=== PATIENT | female | born 1980 | race African-American/Black ===

== ENCOUNTER 2016-09-06 14:34 | Emergency (ER) | payer MEDICAID, SELFPAY ==
[~2016-09-06] VITALS: Ht 157.5 cm; Wt 81.6 kg
[~2016-09-06 14:34] MED LIST: NKM; PERCOCET 5-3251 EACH ORAL
[2016-09-06 15:23] LABS: APPEARANCE,URINE CLEAR; KETONES,URINE 1+ (NEGATIVE); LEUKOCYTE ESTERASE ,URINE 2+ (NEGATIVE); NITRITE,URINE POSITIVE (NEGATIVE); PH,URINE 6.5 (4.5-8.0); PROTEIN,URINE NEGATIVE (NEGATIVE); UROBILINOGEN,URINE NORMAL MG/DL (0.0-1.0)
[2016-09-06 15:24] VITALS: BP 154/87
[2016-09-06 15:26] VITALS: BP 154/87
--- NOTE | 2016-09-06 15:37 | Emergency Room Report ---
History of Present Illness General Chief Complaint: Vaginal Source: Patient Present Illness HPI 36 YO Female presents to the ED c/o having a positive chlamydia test with dysuria x 1 week. pt. states she is unable to make appt. with the clinic until next week. denies fevers, chills, n/V or joint pains. pt. reports period is also late x 1 week. She denies abdominal pain, vaginal discharge, swollen tender lymph nodes. She denies hematuria. She reports frequency. Denies CP, Palpitations, LOC, AMS, dizziness, Changes in Vision, Sensation, paresthesias, or a sudden severe headache. Allergies: Coded Allergies: No Known Allergies (Unverified , 02/07/13) Patient History Past Medical History: see triage record Past Surgical History: none Pertinent Family History: none Last Menstrual Period: last month Now: No Reviewed Nursing Documentation: PMH: Agreed, PSxH: Agreed Nursing Documentation-PMH Past Medical History: No Stated History Review of Systems All Other Systems: negative except mentioned in HPI Physical Exam Vital Signs Date Time Temp Pulse Resp B/P Pulse Ox O2 Delivery O2 Flow Rate FiO2 09/06/16 14:40 98.4 77 18 173/97 100 Room Air Sp02 EP Interpretation: reviewed, normal General Appearance: no apparent distress, alert, GCS 15, non-toxic Head: normocephalic, atraumatic Eyes: bilateral eye PERRL, bilateral eye normal inspection ENT: hearing grossly normal, normal pharynx, no angioedema, normal voice Neck: full range of motion, supple/symm/no masses Respiratory: lungs clear, normal breath sounds, speaking full sentences Cardiovascular #1: regular rate, rhythm, no edema Gastrointestinal: normal bowel sounds, non tender, soft, no guarding, no rebound Rectal: deferred Genitourinary: normal inspection, no CVA tenderness Musculoskeletal: back normal, gait/station normal, normal range of motion, non- tender Neurologic: alert, oriented x3, responsive, motor strength/tone normal, sensory intact, speech normal Psychiatric: judgement/insight normal, memory normal, mood/affect normal Skin: normal color, no rash, warm/dry, well hydrated Lymphatic: no adenopathy Medical Decision Making PA Attestation Dr. cruz is my supervising Physician whom patient management has been discussed with. Diagnostic Impression: Primary Impression: Urinary tract infection Qualified Codes: N30.00 - Acute cystitis without hematuria Additional Impression: Positive Chlamyida test ER Course Pt. presents to the ED c/o having a positive chlamydia test with dysuria x 1 week. pt. states she is unable to make appt. with the clinic until next week. denies fevers, chills, n/V or joint pains. pt. reports period is also late. Ddx considered but are not limited to UTi , STI, G & C, trichomonas, Vaginitis , cervicitis. Vital signs: are WNL, pt. is afebrile H&PE are most consistent with positive results for venereal disease, and UTI ORDERS: - Urine Hcg: Negative -UA: nitrite positive- consistent with UTI ED INTERVENTIONS: -250mg Rocephin IM DISCHARGE: At this time pt. is stable for d/c to home. Will provide printed patient care instructions, and any necessary prescriptions. Care plan and follow up instructions have been discussed with the patient prior to discharge. Lab Results Impression Labs Test 09/06/16 14:53 Urine Color Pale yellow Urine Appearance Clear Urine pH 6.5 (4.5-8.0) Urine Specific [place] 1.010 (1.005-1.035) Urine Protein Negative (NEGATIVE) Urine Glucose (UA) Negative (NEGATIVE) Urine Ketones 1+ (NEGATIVE) Urine Occult Blood 1+ (NEGATIVE) Urine Nitrite Positive (NEGATIVE) Urine Bilirubin Negative (NEGATIVE) Urine Urobilinogen Normal MG/DL (0.0-1.0) Urine Leukocyte Esterase 2+ (NEGATIVE) Urine HCG, Qualitative Negative Last Vital Signs Date Time Temp Pulse Resp B/P Pulse Ox O2 Delivery O2 Flow Rate FiO2 09/06/16 15:26 98.4 62 18 154/87 100 Room Air Disposition: HOME, SELF-CARE Condition: Stable Scripts Doxycycline Hyclate* (VIBRAMYCIN*) 100 Mg Capsule 100 MG ORAL EVERY 12 HOURS for 7 Days, #14 CAP 0 Refills Prov: Bebe Dorantes P.Michael 09/06/16 Nitrofurantoin Monohyd/M-Cryst* (MACROBID 100 MG*) 100 Mg Capsule 100 MG ORAL EVERY 12 HOURS for 5 Days, #10 CAP Prov: Bebe Dorantes.Michael 09/06/16 Patient Instructions: Urinary Tract Infection, [id number] Additional Instructions: Take medications as directed. Follow up with PCP in 3-5 days Return sooner to ED if new symptoms occur, or current symptoms become worse. - Please note that this Emergency Department Report was dictated using [employer] technician technology software, occasionally this can lead to erroneous entry secondary to interpretation by the dictation equipment. Bebe Dorantes. Sep 06, 2016 15:37
[2016-09-06] MEDS ORDERED: NITROFURANTOIN100 M2 ORAL (15:38)
[2016-09-06] MEDS ORDERED: VIBRAMYCIN100 MG ORAL (15:38)
[2016-09-06 15:41] LABS: AMORPHOUS SEDIMENT,UR FEW /LPF; BACTERIA,URINE MANY /HPF; SQUAMOUS EPITHELIAL CELL,UR MODERATE /LPF (NONE/OCC)
== END 2016-09-06 15:50 | disposition home or self-care (01) ==
LOC: EMR 15:30
DX: N30.00 Acute cystitis without hematuria (principal); A74.9 Chlamydial infection, unspecified
CPT/HCPCS: 81003; 81025; 87086; 87181; 96372; 99284; J0696

== ENCOUNTER 2019-07-24 08:40 | Emergency (ER) | payer MEDICAID ==
[~2019-07-24] VITALS: Ht 157.5 cm; Wt 86.2 kg
[~2019-07-24 08:40] MED LIST changes: +NITROFURANTOIN100 M2 ORAL; +VIBRAMYCIN100 MG ORAL
--- NOTE | 2019-07-24 09:00 | NUR ---
ED Nurse Note: Patient walked in c/o green color discharge from vagina from this morning. Pt is alert and oriented x4, Afebrile. Urine sent to lab.
--- NOTE | 2019-07-24 09:00 | NUR ---
ER DISCHARGE NOTE: Patient is cleared to be discharged per ERMD, pt is aox4, on room air, with stable vital signs. pt was given dc and prescription instructions, pt was able to verbalize understanding, pt id band removed without complications. pt is able to ambulate with steady gait. pt took all belongings.
[2019-07-24 09:01] VITALS: BP 161/98
--- NOTE | 2019-07-24 09:13 | Emergency Room Report ---
History of Present Illness General Chief Complaint: Female Urogenital Problems Source: Patient Present Illness [facility] Disclaimer: Please note that this report is being documented using DRAGON technology. This can lead to erroneous entry secondary to incorrect interpretation by the dictating instrument. HPI: 39-year-old female presents for evaluation of dysuria. Symptoms began earlier today. She notes burning pain on urination as well as 1 day of a thick white and foul-smelling vaginal discharge. Her sexual partner is also present in the emergency department with similar discharge and symptoms. Recently tested for BV at outpatient clinic negative on 07/15. Denies abdominal pain or discomfort currently. Denies hematuria or flank pain. No history of PID or abdominal surgeries. Denies the possibility of ; she is currently on her menses. Otherwise denies fever, chills, nausea, vomiting, diarrhea, rash. No history of PID. PMH: Denies PSH: Denies Allergies: Tylenol Social Hx: Denies drug or alcohol abuse Allergies: Coded Allergies: ACETAMINOPHEN (Verified Allergy, Unknown, 07/24/19) COVID-19 Screening Contact w/high risk pt: No Recent Travel to affected area: No Experienced COVID-19 symptoms?: No Patient History Last Menstrual Period: 06/23/19 Now: No Nursing Documentation-PMH Past Medical History: No History, Except For Hx Hypertension: Yes Review of Systems All Other Systems: negative except mentioned in HPI Physical Exam Vital Signs Date Time Temp Pulse Resp B/P (MAP) Pulse Ox O2 Delivery O2 Flow Rate FiO2 07/24/19 08:48 98.2 86 20 161/98 (119) 97 Room Air General: Awake and alert, no acute distress HEENT: NC/AT. EOMI. Resp: Normal work of breathing Abdomen: Soft, nontender, nondistended, no rebound, no masses. Skin: Intact. No abrasions, laceration or rash over the exposed skin MSK: Normal tone and bulk. Moving all extremities. No obvious deformity. Neuro: Awake and alert. Mentating appropriately Medical Decision Making Diagnostic Impression: Primary Impression: Cervicitis Additional Impression: UTI (urinary tract infection) ER Course 39-year-old female presents for evaluation of 1 day dysuria and vaginal discharge. Differential includes was not limited to vaginitis, cervicitis, sex transmitted infection to name a few. She is overall well-appearing stable vital signs and reassuring physical exam. No evidence of pelvic inflammatory disease clinically. She presents with her sexual partner exhibiting similar symptoms. Concern for STI infection will be treated with one-time dose of azithromycin, ceftriaxone and Flagyl. She will be discharged on Macrobid given her nitrite positive urinalysis concerning for possible UTI. We will follow-up with clinic for further testing. Discussed reasons to return to the emergency department. She understands and agrees with the treatment plan. Laboratory Tests Test 07/24/19 08:58 Urine Color Pale yellow Urine Appearance Slightly cloudy Urine pH 6 (4.5-8.0) Urine Specific [place] 1.020 (1.005-1.035) Urine Protein Negative (NEGATIVE) Urine Glucose (UA) Negative (NEGATIVE) Urine Ketones 1+ (NEGATIVE) H Urine Blood 1+ (NEGATIVE) H Urine Nitrite Positive (NEGATIVE) H Urine Bilirubin Negative (NEGATIVE) Urine Urobilinogen Normal MG/DL (0.0-1.0) Urine Leukocyte Esterase 2+ (NEGATIVE) H Urine RBC 0-2 /HPF (0 - 2) Urine WBC 10-15 /HPF (0 - 2) H Urine Squamous Epithelial Cells Few /LPF (NONE/OCC) Urine Bacteria Moderate /HPF (NONE) H Urine HCG, Qualitative Negative (NEGATIVE) Last Vital Signs Date Time Temp Pulse Resp B/P (MAP) Pulse Ox O2 Delivery O2 Flow Rate FiO2 07/24/19 09:01 98.2 20 161/98 97 Room Air 07/24/19 08:48 86 Disposition: HOME, SELF-CARE Condition: Stable Scripts Nitrofurantoin Monohyd/M-Cryst* (MACROBID 100 MG*) 100 Mg Capsule 100 MG ORAL EVERY 12 HOURS for 5 Days, #10 CAP Prov: Chepe Benavidez MD 07/24/19 Chepe Benavidez MD Jul 24, 2019 09:13
[2019-07-24 09:19] LABS: APPEARANCE,URINE SLIGHTLY CLOUDY; BILIRUBIN, URINE NEGATIVE (NEGATIVE); COLOR,URINE PALE YELLOW; GLUCOSE, URINE (UA) NEGATIVE (NEGATIVE); KETONES,URINE 1+ (NEGATIVE); LEUKOCYTE ESTERASE ,URINE 2+ (NEGATIVE); NITRITE,URINE POSITIVE (NEGATIVE); PH,URINE 6 (4.5-8.0); PROTEIN,URINE NEGATIVE (NEGATIVE); UROBILINOGEN,URINE NORMAL MG/DL (0.0-1.0)
[2019-07-24] MEDS ORDERED: NITROFURANTOIN100 M2 ORAL (09:26)
[2019-07-24] MEDS ORDERED: metroNIDAZOLE 250mg tab ONE (09:40)
[2019-07-24] MEDS ORDERED: Lidocaine 1% MPF 10mg/ml 5ml INJ ONE (09:45)
[2019-07-24] MEDS ORDERED: Azithromycin 250mg tab ORAL ONE (09:45)
[2019-07-24] MEDS ORDERED: metroNIDAZOLE 500mg tab ORAL ONE (09:45)
== END 2019-07-24 10:06 | disposition home or self-care (01) ==
LOC: EMR 09:20
DX: N72 Inflammatory disease of cervix uteri (principal); N39.0 Urinary tract infection, site not specified; Z88.6 Allergy status to analgesic agent; I10 Essential (primary) hypertension
CPT/HCPCS: 81003; 81025; 87086; 87181; 96372; 96374; J0696; Q0144; Z7502; 99284